=== PATIENT | female | born 1980 | race Caucasian/White ===

== ENCOUNTER → 2017-07-30 | Outpatient (CLI) | payer OTHER ==
[~2017-07-30] MED LIST: ALBIPROI INH; ALBU3IS INH; ALBU4; ALBU90OI INH; ALBU90OI6 INH; ALBUTEROL; ALBUTEROL 0.083% INH; AMOX500 PO; ASPI81CH; ATEN25; AZIT250 PO; AZIT500 PO; Ativan1 MG PO; BENZ100A PO; BYDUREON P2 MG/0.65 SQ; Budesonide0.5 MG/2 M INH; CARB10OTL MT; CLON2; CLON2 PO; CYCL10 PO; DICL25ER TOP; DICL75ER PO; DOXY100 PO; DULERA 200 MCG/13 GM INH; ESCI10 PO; FLUC150A PO; FLUC200 PO; FLUSAL2505 IH; FLUT220OIA IH; FOLI1; FORM12IH; FORM12IH IH; FURO20 PO; GUAI600T33 PO; HYDACE10B PO; HYDACE5 PO; HYDCHL25 PO; HYDHCL10; HYDR1TAB94 PO; INSDET100 SC; INSLI100I SC; INSULANPEN SC; LAMO100 PO; LEVFLO500 PO; LEVO750 PO; LISI20 PO; LORA1 PO; META800 PO; METF500C PO; MIRT15ST; MOMENI; MONT10T PO; MOTION RELIEF25 MG PO; NAPR500 PO; NYST100P TOP; OLAN10 PO; OLAN5 PO; OXCA300 PO; OXYACE5T PO; OXYC5; PANT40 PO; PARO10 PO; POTCHL10ER; POTCHL10ER PO; PRED10 PO; PRED20 PO; PROCODE120 PO; Prednisone20 MG PO; Provera10 MG PO; RXHYDACE PO; RXNAPNA550 PO; SERT100; SERT100 PO; SITA100T2 PO; TERA1; TIOT18; TOUJEO SOL300 UNIT/1 SQ; TRAZ100; TRAZ50 PO; Tamiflu75 MG PO; VENL75ER; VICODIN PO; [UNRECOGNIZED DRUG - CODE]
== END ==
LOC: LAB EV 13:30
DX: H66.003 Acute suppurative otitis media without spontaneous rupture of ear drum, bilateral (principal)
CPT/HCPCS: 87070; 87205

== ENCOUNTER 2017-07-31 11:29 | Emergency (ER) | payer OTHER ==
[~2017-07-31] VITALS: Ht 157.5 cm; Wt 209.6 kg
[~2017-07-31 11:29] MED LIST changes: -Tamiflu75 MG PO
[2017-07-31 12:00] LABS: BASOPHILS ABSOLUTE AUTO 0.02 K/mm3 (0.00-0.23); BASOPHILS PERCENT AUTO 0 % (0-2); EOSINOPHILS ABSOLUTE AUTO 0.01 K/mm3 (0.00-0.68); EOSINOPHILS PERCENT AUTO 0 % (0-6); Hematocrit 38.3 % (33.0-51.0); Hemoglobin 11.7 g/dL (11.5-16.0); IMMATURE GRAN ABSOLUTE AUTO 0.22 K/mm3 (0.00-0.10); IMMATURE GRAN PERCENT AUTO 3 % (0-1); LYMPHOCYTES ABSOLUTE AUTO 0.93 K/mm3 (0.84-5.20); LYMPHOCYTES PERCENT AUTO 11 % (21-46); MONOCYTES ABSOLUTE AUTO 1.03 K/mm3 (0.16-1.47); MONOCYTES PERCENT AUTO 12 % (4-13); Mean Corpuscular HGB 25.9 pg (26.0-34.0); Mean Corpuscular HGB Conc 30.5 g/dL (31.5-36.5); Mean Corpuscular Volume 85 fL (80-100); Mean Platelet Volume 9.2 fL (9.1-12.4); NEUTROPHILS ABSOLUTE AUTO 6.59 K/mm3 (1.96-9.15); NEUTROPHILS PERCENT AUTO 75 % (41-73); Platelet Count 210 K/mm3 (150-400); RDW Coefficient Variation 15.9 % (11.7-14.2); RDW Standard Deviation 49.5 fL (35.1-46.3); Red Blood Cell Count 4.51 M/mm3 (3.80-5.20)
[2017-07-31 12:13] LABS: Alanine Aminotransfer (ALT/SGP 46 U/L (12-78); Albumin, Blood 3.1 g/dL (3.4-5.0); Albumin/Globulin Ratio 0.7 (0.8-1.8); Alk Phos 82 U/L (50-136); Anion Gap 6 mmol/L (6-16); Aspartate Aminotrans (AST/SGOT 42 U/L (12-37); Bilirubin, Total 0.3 mg/dL (0.1-1.0); Blood Urea Nitrogen 10 mg/dL (8-24); CO2, Blood 34 mmol/L (21-32); Calcium, Blood 8.3 mg/dL (8.5-10.1); Chloride, Blood 93 mmol/L (98-108); Creatinine, Blood 0.67 mg/dL (0.40-1.00); Globulin, Blood 4.3 g/dL (2.2-4.0); Glomerular Filtration Rate >60 (60-); Glucose, Blood 262 mg/dL (70-99); Potassium, Blood 3.9 mmol/L (3.5-5.5); Sodium, Blood 133 mmol/L (136-145); Total Protein, Blood 7.4 g/dL (6.4-8.2); Troponin I <0.015 ng/mL (0.000-0.040)
[2017-07-31 14:07] LABS: Influenza A Positive (NEGATIVE); Influenza B Negative (NEGATIVE)
[2017-07-31] MEDS ORDERED: Tamiflu75 MG PO (14:26)
== END 2017-07-31 15:02 | disposition home or self-care (01) ==
LOC: ER 11:29
PROVIDERS: Emergency Medicine
DX: J10.1 Influenza due to other identified influenza virus with other respiratory manifestations (principal); E66.01 Morbid (severe) obesity due to excess calories; G47.30 Sleep apnea, unspecified; Z68.45 Body mass index [BMI] 70 or greater, adult; F31.9 Bipolar disorder, unspecified; E11.9 Type 2 diabetes mellitus without complications; I11.0 Hypertensive heart disease with heart failure; I50.9 Heart failure, unspecified; J45.909 Unspecified asthma, uncomplicated; Z88.8 Allergy status to other drugs, medicaments and biological substances; Z91.040 Latex allergy status; Z88.2 Allergy status to sulfonamides; Z88.1 Allergy status to other antibiotic agents; Z79.899 Other long term (current) drug therapy; Z79.4 Long term (current) use of insulin; Z87.891 Personal history of nicotine dependence
CPT/HCPCS: 36415; 71046; 80053; 84484; 85025; 87804; 93005; 93010; 94640; 96374; 99283; J1940